=== PATIENT | male | born 1955 | race Two or more races ===

== ENCOUNTER 2020-12-27 14:15 | Emergency (ER) | payer MEDICAID, OTHER ==
[~2020-12-27] VITALS: Ht 160 cm; Wt 90.7 kg
[2020-12-27] MEDS ORDERED: cefTRIAXone SOD 1,000 MG VL IM ONE (15:30)
[2020-12-27 16:23] VITALS: BP 142/72
== END 2020-12-27 16:39 | disposition home or self-care (01) ==
LOC: ER 14:15
DX: J03.90 Acute tonsillitis, unspecified (principal); J06.9 Acute upper respiratory infection, unspecified
CPT/HCPCS: 96372; 99283; J0696